=== PATIENT | female | born 1945 | race Caucasian/White ===

== ENCOUNTER 2017-05-06 14:53 | Emergency (ER) | payer MEDICARE, MEDICAID ==
--- NOTE | 2017-05-06 17:03 | ER Document Report ---
ED GI/ - General Mode of Arrival: Ambulatory Information source: Patient TRAVEL OUTSIDE OF THE [place] IN LAST 30 DAYS: No - HPI Patient complains to provider of: Other - see narrative Onset: Just prior to arrival <AMANDEEP CISSE - Last Filed: 05/06/17 17:51> <ANRDEZ PADILLA - Last Filed: 05/07/17 00:24> - General Chief Complaint: Diarrhea Stated Complaint: FOOT PAIN Time Seen by Provider: 05/06/17 16:27 Notes: Patient is a 71-year-old female that presents to the emergency department today secondary to x2 episodes of diarrhea that occurred prior to arrival. Patient states she was at pain management for her first visit, just prior to arrival here, when the diarrhea began. Patient states she did not have time to make it to the restroom. Patient states she is seeing pain management for her neuropathy. Patient does note that she had back pain across her low back today , rated as a 7/10, described as a sharp stabbing pain that comes and goes. Patient is nauseated. Patient denies any recent antibiotic usage, blood in her stool, or fevers. (AMANDEEP CISSE) - Related Data Allergies/Adverse Reactions: No Known Allergies Allergy (Unverified 05/06/17 15:11) Home Medications: Current Home Medications Albuterol Sulfate [Ventolin Hfa] 2 puff IH QID 05/06/17 [History] Citalopram Hydrobromide [Citalopram HBr] 40 mg PO DAILY 05/06/17 [History] Diazepam [Diazepam] 5 mg PO TID PRN 05/06/17 [History] Gabapentin [Gabapentin] 300 cap PO DAILY 05/06/17 [History] Insulin Aspart [Novolog Flexpen] 15 unit SUBCUT BID PRN 05/06/17 [History] Insulin Detemir [Levemir] 100 ml SUBCUT DAILY 05/06/17 [History] Past Medical History - Social History Smoking Status: Current Every Day Smoker Cigarette use (# per day): Yes Chew tobacco use (# tins/day): No Smoking Education Provided: Yes - Smoking cessation provided for approximately 5 minutes Frequency of alcohol use: None Drug Abuse: None Lives with: Family Family History: Reviewed & Not Pertinent Patient has suicidal ideation: No Patient has homicidal ideation: No Pulmonary Medical History: Reports: Hx COPD Endocrine Medical History: Reports: Hx Diabetes Mellitus Type 2 Past Surgical History: Reports: Hx Appendectomy - age 12, Hx Hysterectomy <AMANDEEP CISSE - Last Filed: 05/06/17 17:51> Review of Systems - Review of Systems Constitutional: denies: Fever EENT: No symptoms reported Cardiovascular: No symptoms reported Respiratory: No symptoms reported Gastrointestinal: See HPI, Diarrhea, Nausea. denies: Vomiting, Blood streaked bowels Genitourinary: No symptoms reported Female Genitourinary: No symptoms reported Musculoskeletal: See HPI, Back pain Skin: No symptoms reported Hematologic/Lymphatic: No symptoms reported Neurological/Psychological: No symptoms reported -: Yes All other systems reviewed and negative <AMANDEEP CISSE - Last Filed: 05/06/17 17:51> Physical Exam <AMANDEEP CISSE - Last Filed: 05/06/17 17:51> <ANDREZ PADILLA - Last Filed: 05/07/17 00:24> - Vital signs Vitals: Temp Pulse Resp BP Pulse Ox 97.9 F 90 20 119/59 L 98 05/06/17 15:11 05/06/17 15:11 05/06/17 15:11 05/06/17 15:11 05/06/17 15:11 - Notes Notes: PHYSICAL EXAM GENERAL: Alert, interacts well. No acute distress. HEAD: Normocephalic, atraumatic. EYES: Pupils equal, round, and reactive to light. Extraocular movements intact. ENT: Oral mucosa moist, no sign of dehydration, tongue midline. NECK: Full range of motion. Supple. Trachea midline. LUNGS: Clear to auscultation bilaterally, no wheezes, rales, or rhonchi. No respiratory distress. HEART: Regular rate and rhythm. No murmurs, gallops, or rubs. ABDOMEN: Soft, mild diffuse lower abdominal tenderness with palpation. Non- distended. Bowel sounds present in all 4 quadrants. EXTREMITIES: Moves all 4 extremities spontaneously. No edema, radial and dorsalis pedis pulses 2/4 bilaterally. No cyanosis. NEUROLOGICAL: Alert and oriented x3. Normal speech. PSYCH: Normal affect, normal mood. SKIN: Warm, dry, normal turgor. No rashes or lesions noted. (AMANDEEP CISSE) Course - Laboratory Result Diagrams: 05/06/17 16:43 05/06/17 16:43 <AMANDEEP CISSE - Last Filed: 05/06/17 17:51> - Laboratory Result Diagrams: 05/06/17 16:43 05/06/17 16:43 <ANDREZ PADILLA - Last Filed: 05/07/17 00:24> - Re-evaluation Re-evalutation: 05/06/17 19:53 CBC unremarkable, CMP shows low glucose of 64, patient is feeling shaky so she will be fed, AST and ALT slightly elevated but do not indicate obstructive biliary process, CT scan the abdomen pelvis does not show any acute process. Patient has not had any further diarrhea, is eating without difficulty, tolerating food well. Patient will be discharged home with recommendation to use Imodium as directed on the box and return for any new or concerning symptoms. (ANDREZ PADILLA) - Vital Signs Vital signs: Temp Pulse Resp BP Pulse Ox 98 F 91 17 117/59 L 97 05/06/17 20:45 05/06/17 20:45 05/06/17 20:45 05/06/17 20:45 05/06/17 20:45 - Laboratory Laboratory results interpreted by me: 05/06/17 16:43 Glucose 64 L AST 37 H ALT 64 H Total Protein 8.7 H Discharge <AMANDEEP CISSE - Last Filed: 05/06/17 17:51> <ANDREZ PADILLA - Last Filed: 05/07/17 00:24> - Discharge Clinical Impression: Diarrhea Qualifiers: Diarrhea type: unspecified type Qualified Code(s): R19.7 - Diarrhea, unspecified Condition: Stable Disposition: HOME, SELF-CARE Additional Instructions: Your CAT scan did not show any signs of infection. Your blood work was beautiful without any signs of infection or dehydration. Please consider using Imodium as directed on the box to treat your diarrhea. Please return for fevers, vomiting, blood in your stool or diarrhea that is not controlled by the Imodium. Please call [place] pain management to arrange a follow-up appointment. Scribe Attestation: 05/07/17 00:24 I personally performed the services described in the documentation, reviewed and edited the documentation which was dictated to the scribe in my presence, and it accurately records my words and actions. (ANDREZ PADILLA) Scribe Documentation - Scribe Written by Josefina:: Josefina Coats, 05/06/2017 181 acting as scribe for :: Dewayne <AMANDEEP CISSE - Last Filed: 05/06/17 17:51>
[2017-05-06 17:24] LABS: ABSOLUTE EOSINOPHILS # (AUTO) 0.1 10^3/uL (0.0-0.6); ABSOLUTE LYMPHOCYTES (AUTO) 2.5 10^3/uL (0.5-4.7); ABSOLUTE MONOCYTES (AUTO) 0.4 10^3/uL (0.1-1.4); ABSOLUTE NEUT (AUTO) 6.3 10^3/uL (1.7-8.2); BASOPHILS % (AUTO) 0.5 % (0-2); EOSINOPHILS % (AUTO) 1.2 % (0-6); HEMATOCRIT 38.4 % (36.0-47.0); HEMOGLOBIN 12.9 g/dL (12.0-15.5); HGB HCT DIFFERENCE 0.3; LYMPHOCYTES % (AUTO) 26.4 % (13-45); MEAN CORPUSCULAR HGB CONC 33.6 g/dL (32.0-36.0); MEAN CORPUSCULAR VOLUME 89 fl (80-97); MONOCYTES % (AUTO) 3.8 % (3-13); RED BLOOD COUNT 4.29 10^6/uL (3.72-5.28); SEGMENTED NEUTROPHILS % (AUTO) 68.1 % (42-78); WHITE BLOOD COUNT 9.3 10^3/uL (4.0-10.5)
[2017-05-06 17:34] LABS: ALANINE AMINOTRANSFERASE 64 U/L (9-52); ALBUMIN 4.6 g/dL (3.5-5.0); ALKALINE PHOSPHATASE 79 U/L (38-126); ANION GAP 13 (5-19); ASPARTATE AMINO TRANSFERASE 37 U/L (14-36); BILIRUBIN,DIRECT 0.4 mg/dL (0.0-0.4); BILIRUBIN,TOTAL 0.6 mg/dL (0.2-1.3); BLOOD UREA NITROGEN 17 mg/dL (7-20); CALCIUM 9.8 mg/dL (8.4-10.2); CARBON DIOXIDE 25 mmol/L (22-30); CHLORIDE 106 mmol/L (98-107); CREATININE RESULT 0.64 mg/dL (0.52-1.25); GLUCOSE 64 mg/dL (75-110); SODIUM 143.9 mmol/L (137-145); TOTAL PROTEIN 8.7 g/dL (6.3-8.2)
--- NOTE | 2017-05-06 18:36 | RADIOLOGY REPORT (SQ) ---
EXAM DESCRIPTION: CT ABD/PELVIS WITH IV ONLY COMPLETED DATE/TIME: 05/06/2017 6:23 pm REASON FOR STUDY: LLQ abd pain COMPARISON: None. TECHNIQUE: CT scan of the abdomen and pelvis performed using helical scanning technique with dynamic intravenous contrast injection. No oral contrast. Images reviewed with lung, soft tissue, and bone windows. Reconstructed coronal and sagittal MPR images reviewed. Delayed images for evaluation of the urinary system also acquired. All images stored on PACS. All CT scanners at this facility use dose modulation, iterative reconstruction, and/or weight based d osing when appropriate to reduce radiation dose to as low as reasonably achievable (ALARA). [facility]: Dose Right [facility]: CareDose [facility]: Dose Right [facility]: Teradose 4D [facility]: [employer] CONTRAST TYPE AND DOSE: contrast/concentration: Isovue 370.00 mg/ml; Total Contrast Delivered: 75.0 ml; Total Saline Delivered: 40.0 ml RENAL FUNCTION: BUN 17, creatinine 0 point 6 6 RADIATION DOSE: Up-to-date CT equipment and radiation dose reduction techniques were employed. CTDIv ol: 9.3 - 13.0 mGy. DLP: 1180 mGy-cm.. LIMITATIONS: None. FINDINGS: LOWER CHEST: No significant findings. No nodules or infiltrates. LIVER: Normal size. No masses. No dilated ducts. SPLEEN: Normal size. No focal lesions. PANCREAS: No masses. No significant calcifications. No adjacent inflammation or peripancreatic fluid collections. Pancreatic duct not dilated. GALLBLADDER: No identified stones by CT criteria. No inflammatory changes to suggest cholecystitis. ADRENAL GLANDS: No significant masses or asymmetry. RIGHT KIDNEY AND URETER: No solid masses. No significant calcifications. No hydronephrosis or hyd roureter. LEFT KIDNEY AND URETER: No solid masses. No significant calcifications. No hydronephrosis or hydr oureter. AORTA AND VESSELS: No aneurysm. No dissection. Renal arteries, SMA, celiac without stenosis. RETROPERITONEUM: No retroperitoneal adenopathy, hemorrhage or masses. BOWEL AND PERITONEAL CAVITY: No masses or inflammatory changes. No free fluid or peritoneal masses. APPENDIX: Not visualized. PELVIS: No mass. No free fluid. Normal bladder. ABDOMINAL WALL: No masses. No hernias. BONES: No significant or acute findings. OTHER: No other significant finding. IMPRESSION: NO SIGNIFICANT OR ACUTE FINDING IN THE ABDOMEN OR PELVIS ON CT SCAN WITH IV CONTRAST. TECHNICAL DOCUMENTATION: JOB ID: [id number] Quality ID # [id number]: Final reports with documentation of one or more dose reduction techniques (e.g., Au tomated exposure control, adjustment of the mA and/or kV according to patient size, use of iterative reconstruction technique) 2010 [employer]- All Rights Reserved
[2017-05-06 20:47] VITALS: BP 117/59
== END 2017-05-06 20:45 | disposition home or self-care (01) ==
LOC: ER 14:53
DX: R19.7 Diarrhea, unspecified (principal); E11.40 Type 2 diabetes mellitus with diabetic neuropathy, unspecified; R11.0 Nausea; M54.5 Low back pain; J44.9 Chronic obstructive pulmonary disease, unspecified; F17.210 Nicotine dependence, cigarettes, uncomplicated; Z71.6 Tobacco abuse counseling; Z90.49 Acquired absence of other specified parts of digestive tract
CPT/HCPCS: 36415; 74177; 80053; 85025; 99284; 99406

== ENCOUNTER 2017-05-13 12:47 | Emergency (ER) | payer MEDICARE, MEDICAID ==
--- NOTE | 2017-05-13 13:36 | ER Document Report ---
ED Fall - General Chief Complaint: Fall Stated Complaint: FALL BACK PAIN Time Seen by Provider: 05/13/17 13:23 Mode of Arrival: Ambulatory Information source: Patient Notes: 71-year-old female presents to ED status post fall in the shower around noontime today. She complains of pain in her right flank and her right shoulder. TRAVEL OUTSIDE OF THE [place] IN LAST 30 DAYS: No - HPI Occurred: This morning Where: Home, Indoors Context: Tripped Associated symptoms: None Location of injury/pain: Flank - Right, Shoulder - Right Quality of pain: Sharp Severity: Moderate Pain Level: 4 - Related data Allergies/Adverse Reactions: No Known Allergies Allergy (Verified 05/13/17 12:57) Past Medical History - General Information source: Patient - Social History Smoking Status: Current Every Day Smoker Cigarette use (# per day): Yes - 10 cigarettes a day Chew tobacco use (# tins/day): No Smoking Education Provided: Yes - Less than 2 minutes Frequency of alcohol use: None Drug Abuse: None Occupation: none Lives with: Parents Family History: DM Patient has suicidal ideation: No Patient has homicidal ideation: No - Past Medical History Cardiac Medical History: Reports: None Pulmonary Medical History: Reports: Hx COPD EENT Medical History: Reports: None Neurological Medical History: Reports: None Endocrine Medical History: Reports: Hx Diabetes Mellitus Type 2 Renal/ Medical History: Reports: None Malignancy Medical History: Reports: None GI Medical History: Reports: None Musculoskeltal Medical History: Reports None Skin Medical History: Reports None Psychiatric Medical History: Reports: Hx Anxiety, Hx Depression Traumatic Medical History: Reports: None Infectious Medical History: Reports: None Past Surgical History: Reports: Hx Appendectomy - age 12, Hx Hysterectomy Review of Systems - Review of Systems Constitutional: No symptoms reported EENT: No symptoms reported Cardiovascular: No symptoms reported Respiratory: No symptoms reported Gastrointestinal: No symptoms reported Genitourinary: Flank pain - right Female Genitourinary: No symptoms reported Musculoskeletal: Joint pain - right shoulder Skin: No symptoms reported Hematologic/Lymphatic: No symptoms reported Neurological/Psychological: No symptoms reported -: Yes All other systems reviewed and negative Physical Exam - Vital signs Vitals: Temp Pulse Resp BP Pulse Ox 97.4 F 92 22 H 117/49 L 96 05/13/17 12:54 05/13/17 12:54 05/13/17 12:54 05/13/17 12:54 05/13/17 12:54 Interpretation: Normal - General General appearance: Appears well, Alert - HEENT Head: Normocephalic, Atraumatic Eyes: Normal Pupils: PERRL - Respiratory Respiratory status: No respiratory distress Chest status: Nontender Breath sounds: Normal Chest palpation: Normal - Cardiovascular Rhythm: Regular Heart sounds: Normal auscultation Murmur: No - Abdominal Inspection: Normal Distension: No distension Bowel sounds: Normal Tenderness: Nontender Organomegaly: No organomegaly - Back Back: Normal, Tender, CVA tenderness - right. No: Deformity/step-off, Vertebra tenderness, Scars, Scoliosis, Wounds - Extremities General upper extremity: Normal inspection, Nontender, Normal color, Normal ROM , Normal temperature General lower extremity: Normal inspection, Nontender, Normal color, Normal ROM , Normal temperature, Normal weight bearing. No: John's sign - Neurological Neuro grossly intact: Yes Cognition: Normal Orientation: AAOx4 Concrete Coma Scale Eye Opening: Spontaneous Rayray Coma Scale Verbal: Oriented Concrete Coma Scale Motor: Obeys Commands Rayray Coma Scale Total: 15 Speech: Normal Motor strength normal: LUE, RUE, LLE, RLE Sensory: Normal - Psychological Associated symptoms: Normal affect, Normal mood - Skin Skin Temperature: Warm Skin Moisture: Dry Skin Color: Normal Course - Re-evaluation Re-evalutation: 05/13/17 22:25 ultrasound and xray discussed with patient, patient treated for uti and discharged home to follow up with pain management tomorrow as scheduled - Vital Signs Vital signs: Temp Pulse Resp BP Pulse Ox 97.4 F 79 18 160/100 H 100 05/13/17 12:54 05/13/17 17:36 05/13/17 17:36 05/13/17 17:36 05/13/17 17:36 - Laboratory Laboratory results interpreted by me: 05/13/17 13:30 Urine Blood SMALL H Ur Leukocyte Esterase LARGE H - Diagnostic Test Radiology reviewed: Image reviewed, Reports reviewed Discharge - Discharge Clinical Impression: Fall Qualifiers: Encounter type: initial encounter Qualified Code(s): W19.XXXA - Unspecified fall, initial encounter Contusion of right shoulder Qualifiers: Encounter type: initial encounter Qualified Code(s): S40.011A - Contusion of right shoulder, initial encounter Contusion of right side of back Qualifiers: Encounter type: initial encounter Qualified Code(s): S20.221A - Contusion of right back wall of thorax, initial encounter UTI (urinary tract infection) Qualifiers: Urinary tract infection type: site unspecified Hematuria presence: with hematuria Qualified Code(s): N39.0 - Urinary tract infection, site not specified Condition: Stable Disposition: HOME, SELF-CARE Instructions: Family Physicians / Practices Additional Instructions: CONTUSION: Your injury has resulted in a contusion -- a crushing of the deep tissues. No injury to important structures was detected during the physician's exam. Contusions vary in the amount of pain they cause, and in the length of time required for healing. Typically, the area will become bruised, and will remain painful to touch for two or three weeks. However, most patients are back to working and playing within a few days. After the initial period of rest and cold-packs, your symptoms (together with the doctor's recommendations) will determine how rapidly you can get back to full activity. Usually this means "do what feels okay, but don't do things that hurt." If re-examination was recommended, it's important to follow up as instructed. Call the doctor or return any time if pain increases, if swelling becomes severe, if you develop numbness or weakness in an injured extremity, or if any other alarming symptoms occur. URINARY TRACT INFECTION: Your evaluation indicates that you have a urinary tract infection. This is due to germs growing in the bladder. This is a common problem. This infection usually responds quickly to antibiotics. Your antibiotic should be taken exactly as prescribed. Drink plenty of fluids -- three to four quarts a day. Occasionally, a bladder anesthetic will be prescribed to help stop the feeling of urgency until the antibiotic has a chance to clear the infection. This may cause your urine to be dark orange. Certain urine infections require a culture. If the doctor obtained a culture, the results will be back in two days. You should call to see if a change in treatment is needed. A repeat urinalysis after you finish treatment is often recommended. The physician will let you know if further testing is required. Call the doctor if you develop fever, chills, flank pain, inability to urinate, or blood in the urine. \\ NITROFURANTOIN (MACRODANTIN, MACROBID): You have received a prescription for nitrofurantoin (Macrodantin). This antibiotic is used for urinary tract infections. Women who are or nursing should notify the physician before taking this medicine. If you have ever had a problem caused by this medication in the past, be sure the physician is aware of it. Common side effects of this medicine include nausea, vomiting, or decreased appetite. Notify your physician if these side effects become severe. Immediately stop this medicine and call the physician if you develop cough , shortness of breath, chest pain, weakness, jaundice (yellow color of the skin and whites of the eyes), or a skin rash. USE OF TYLENOL (ACETAMINOPHEN): Acetaminophen may be taken for pain relief or fever control. It's much safer than aspirin, offering a wider range of "safe" dosages. It is safe during . Some brand names are Tylenol, Panadol, Datril, Anacin 3, Tempra, and Liquiprin. Acetaminophen can be repeated every four hours. The following are maximum recommended dosages: WEIGHT Dose Drops Elixir Chewable( 80mg) (LBS.) drprs=droppers tsp=teaspoon 6 40 mg 0.4 ml (1/2) 6-11 80 mg 0.8 ml (full) tsp 1 tab 12-16 120 mg 1 1/2 drprs 3/4 tsp 1 1/2 tabs 17-23 160 mg 2 drprs 1 tsp 2 tabs 24-30 240 mg 3 drprs 1 1/2 tsp 3 tabs 30-35 320 mg 2 tsp 4 tabs 36-41 360 mg 2 1/4 tsp 4 1/2 tabs 42-47 400 mg 2 1/2 tsp 5 tabs 48-53 480 mg 3 tsp 6 tabs 54-59 520 mg 3 1/4 tsp 6 1/2 tabs 60-64 560 mg 3 1/2 tsp 7 tabs 65-70 600 mg 3 3/4 tsp 7 1/2 tabs 71-76 640 mg 4 tsp 8 tabs 77-82 720 mg 4 1/2 tsp 9 tabs 83-88 800 mg 5 tsp 10 tabs >89 pounds or adults 650 mg to 900 mg Acetaminophen can be repeated every four hours. Maximum dose not to exceed 4000 mg a day. These maximum recommended dosages are slightly higher than the dosages written on the product container, but these dosages are very safe and below the toxic dosage for acetaminophen. ICE PACKS: Apply ice packs frequently against the painful area. Many different schedules are recommended, such as "20 minutes on, 20 minutes off" or "one hour ice, two hours rest." If you need to work, you may need to go longer between ice treatments. You should plan to have the area ice packed AT LEAST one fourth of the time. The ice should be applied over the wrap, tape, or splint, or over a layer of cloth -- not directly against the skin. Some ice bags have a built-in cloth and can be put directly on the skin. WARM PACKS: After approximately two days, apply gentle heat (such as a heating pad or hot water bottle) for about 20 to 30 minutes about every two hours -- at least four times daily. Warmth and elevation will help you make a more rapid recovery , and will ease the pain considerably. Do not use HOT heat, and never apply heat for longer than 30 minutes. The continuous heat can invisibly damage skin and muscles -- even when no burn is seen on the surface. Damaged muscles can make you MORE sore. FOLLOW-UP CARE: If you have been referred to a physician for follow-up care, call the physician s office for an appointment as you were instructed or within the next two days. If you experience worsening or a significant change in your symptoms, notify the physician immediately or return to the Emergency Department at any time for re-evaluation. Prescriptions: Nitrofurantoin/Nitrofuran Mac [Macrobid 100 mg Capsule] 1 tab PO BID #10 capsule Forms: Smoking Cessation Education
[2017-05-13] MEDS ORDERED: IBUPROFEN 600 MG TABLET PO ONE (13:37)
[2017-05-13 14:14] LABS: APPEARANCE,URINE SLIGHTLY-CLOUDY; BILIRUBIN,URINE NEGATIVE (NEGATIVE); GLUCOSE, URINE NEGATIVE (NEGATIVE); KETONES,URINE NEGATIVE (NEGATIVE); LEUKOCYTE ESTERASE,URINE LARGE (NEGATIVE); NITRITE,URINE NEGATIVE (NEGATIVE); PROTEIN,URINE NEGATIVE (NEGATIVE); URINE SPECIFIC GRAVITY 1.013; UROBILINOGEN,URINE NEGATIVE mg/dL (<2.0)
[2017-05-13 17:37] VITALS: BP 160/100
--- NOTE | 2017-05-14 14:56 | RADIOLOGY REPORT (SQ) ---
EXAM DESCRIPTION: Bilateral renal ultrasound COMPLETED DATE/TIME: 05/13/2017, 1506 hours REASON FOR STUDY: Fall, pain right shoulder and flank COMPARISON: CT abdomen pelvis 05/06/2017 TECHNIQUE: Bilateral renal ultrasound was performed with grayscale and color flow images. Urinary b ladder ultrasound was performed. LIMITATIONS: None FINDINGS: Both kidneys measure 12 cm in length. Normal cortical thickness and echogenicity. No hyd ronephrosis, cysts, stones, or masses. Limited images of the urinary bladder are unremarkable. IMPRESSION: Unremarkable study. No left hydronephrosis.
--- NOTE | 2017-05-18 00:04 | RADIOLOGY REPORT (SQ) ---
EXAM DESCRIPTION: SHOULDER RIGHT 2 OR MORE VIEWS COMPLETED DATE/TIME: 05/13/2017, 1400 hours REASON FOR STUDY: fall pain right shoulder and flank COMPARISON: No previous TECHNIQUE: Right shoulder three views AP internal and external rotation, Y-view LIMITATIONS: None FINDINGS: Bones are osteopenic. No glenohumeral dislocation. No acromioclavicular joint widening. No acute fracture of the right upper ribs, right clavicle, right scapula, or right humeral head. IMPRESSION: No acute findings. TECHNICAL DOCUMENTATION: JOB ID: [id number]
== END 2017-05-13 17:39 | disposition home or self-care (01) ==
LOC: ER 12:47
DX: S20.221A Contusion of right back wall of thorax, initial encounter (principal); S40.011A Contusion of right shoulder, initial encounter; W18.2XXA Fall in (into) shower or empty bathtub, initial encounter; Y93.89 Activity, other specified; Y92.002 Bathroom of unspecified non-institutional (private) residence as the place of occurrence of the external cause; R10.9 Unspecified abdominal pain; M25.511 Pain in right shoulder; E11.9 Type 2 diabetes mellitus without complications; F17.210 Nicotine dependence, cigarettes, uncomplicated; Z71.6 Tobacco abuse counseling
CPT/HCPCS: 99284; 81001; 73030; 76770; A9270

== ENCOUNTER → 2017-05-18 | Outpatient (CLI) | payer MEDICARE, MEDICAID ==
[2017-05-18 15:46] LABS: C-REACTIVE PROTEIN 9.4 mg/L (<10.0)
[2017-05-18 16:51] LABS: FOLATE 9.26 ng/mL (>2.76)
--- NOTE | 2017-05-18 18:03 | RADIOLOGY REPORT (SQ) ---
EXAM DESCRIPTION: KNEE LEFT 4 VIEW COMPLETED DATE/TIME: 05/18/2017 3:22 pm REASON FOR STUDY: BILATERAL KNEE PAIN M79.2 NEURALGIA AND NEURITIS, UNSPECIFIED M25.50 PAIN IN UNS PECIFIED JOINT COMPARISON: None. NUMBER OF VIEWS: Four views. TECHNIQUE: AP, lateral, and both oblique radiographic images acquired of the left knee. LIMITATIONS: None. FINDINGS: MINERALIZATION: Normal. BONES: No acute fracture or dislocation. No worrisome bone lesions. JOINT: No effusion. Mild medial compartment joint space narrowing. Moderate chondrocalcinosis. SOFT TISSUES: No soft tissue swelling. No radio-opaque foreign body. OTHER: No other significant finding. IMPRESSION: No acute changes. Mild medial compartment joint space narrowing. TECHNICAL DOCUMENTATION: JOB ID: [id number] [employer]- All Rights Reserved
--- NOTE | 2017-05-18 18:04 | RADIOLOGY REPORT (SQ) ---
EXAM DESCRIPTION: KNEE RIGHT 4 VIEWS COMPLETED DATE/TIME: 05/18/2017 3:22 pm REASON FOR STUDY: BILATERAL KNEE PAIN M79.2 NEURALGIA AND NEURITIS, UNSPECIFIED M25.50 PAIN IN UNS PECIFIED JOINT COMPARISON: None. NUMBER OF VIEWS: Four views. TECHNIQUE: AP, lateral, and both oblique radiographic images acquired of the right knee. LIMITATIONS: None. FINDINGS: MINERALIZATION: Normal. BONES: No acute fracture or dislocation. No worrisome bone lesions. JOINT: No effusion. Moderate chondrocalcinosis without joint with narrowing SOFT TISSUES: No soft tissue swelling. No radio-opaque foreign body. OTHER: No other significant finding. IMPRESSION: Moderate chondrocalcinosis without joint space narrowing. No acute findings TECHNICAL DOCUMENTATION: JOB ID: [id number] [employer]- All Rights Reserved
[2017-05-21 10:02] LABS: VITAMIN D 1,25 DIHYDROXY 41.5 pg/mL (19.9-79.3)
== END ==
LOC: LAB 14:47
PROVIDERS: ATTEND Physician Assistant
DX: M25.562 Pain in left knee (principal); M25.561 Pain in right knee; M79.2 Neuralgia and neuritis, unspecified
CPT/HCPCS: 36415; 82607; 82652; 82746; 85652; 86038; 86140; 86430; 86812

== ENCOUNTER 2018-04-05 14:16 | Emergency (ER) | payer MEDICARE, MEDICAID ==
[2018-04-05 14:24] VITALS: BP 133/63
--- NOTE | 2018-04-05 15:28 | ER Document Report ---
ED General - General Chief Complaint: Foreign Body Stated Complaint: STOMACH PAIN Time Seen by Provider: 04/05/18 15:22 Notes: Patient is a 72-year-old female who reports that she thinks an insulin needle is in her abdominal wall since last night. She injected insulin and did not see the needle come out. She denies any abdominal pain, drainage or redness. TRAVEL OUTSIDE OF THE [place] IN LAST 30 DAYS: No - Related Data Allergies/Adverse Reactions: No Known Allergies Allergy (Verified 04/05/18 14:17) Past Medical History - General Information source: Patient - Social History Smoking Status: Unknown if Ever Smoked Family History: DM Pulmonary Medical History: Reports: Hx COPD Endocrine Medical History: Reports: Hx Diabetes Mellitus Type 2 Renal/ Medical History: Denies: Hx Peritoneal Dialysis Psychiatric Medical History: Reports: Hx Anxiety, Hx Depression Past Surgical History: Reports: Hx Appendectomy - age 12, Hx Hysterectomy Review of Systems - Review of Systems Constitutional: denies: Chills, Fever Gastrointestinal: denies: Abdomen distended, Abdominal pain, Vomiting Skin: denies: Lumps, Rash Physical Exam - Vital signs Vitals: Pulse Resp BP Pulse Ox 91 18 133/63 H 100 04/05/18 14:23 04/05/18 14:23 04/05/18 14:23 04/05/18 14:23 - Notes Notes: PHYSICAL EXAMINATION: GENERAL: Well-appearing, well-nourished and in no acute distress. HEAD: Atraumatic, normocephalic. ABDOMEN: Soft, nontender, normoactive bowel sounds. No tenderness over LLQ and no foreign body palpated or seen. No guarding, no rebound. No masses appreciated. EXTREMITIES: Normal range of motion, no pitting or edema. No cyanosis. SKIN: Warm, Dry, normal turgor, no rashes or lesions noted. Course - Re-evaluation Re-evalutation: Bedside ultrasound of her left lower quadrant abdominal pain did not reveal any foreign bodies in her abdominal wall adipose tissue. No signs of infection. At this time, do not suspect or see a broken off insulin needle in her abdominal wall. She has absolutely no peritoneal signs at this time. Given strict return precautions and she understands. - Vital Signs Vital signs: Temp Pulse Resp BP Pulse Ox 91 18 133/63 H 100 04/05/18 14:23 04/05/18 14:23 04/05/18 14:23 04/05/18 14:23 Discharge - Discharge Clinical Impression: Worried well Condition: Stable Disposition: HOME, SELF-CARE Additional Instructions: At this time, there is no evidence of a retained insulin needle in your abdominal wall. Continue to watch for any signs of infection. Forms: Elevated Blood Pressure Referrals: LOCALMD,NO [NO LOCAL MD] - Follow up as needed
== END 2018-04-05 15:36 | disposition home or self-care (01) ==
LOC: ER 14:16
DX: Z71.1 Person with feared health complaint in whom no diagnosis is made (principal); E11.9 Type 2 diabetes mellitus without complications; Z79.4 Long term (current) use of insulin; J44.9 Chronic obstructive pulmonary disease, unspecified
CPT/HCPCS: 99283